=== PATIENT | male | born 1990 | race Caucasian/White ===

== ENCOUNTER 2017-10-06 08:29 | Emergency (ER) | payer SELFPAY ==
[~2017-10-06] VITALS: Ht 170.2 cm; Wt 76.0 kg
[2017-10-06 09:59] VITALS: BP 132/76
== END 2017-10-06 10:28 | disposition home or self-care (01) ==
LOC: ER 08:58
DX: S93.692A Other sprain of left foot, initial encounter (principal); F17.200 Nicotine dependence, unspecified, uncomplicated; F12.10 Cannabis abuse, uncomplicated; W17.89XA Other fall from one level to another, initial encounter; Y93.18 Activity, surfing, windsurfing and boogie boarding; Y92.832 Beach as the place of occurrence of the external cause
CPT/HCPCS: 73610; 73630; 99284